=== PATIENT | female | born 1925 | race Caucasian/White ===

== ENCOUNTER 2017-06-24 16:43 | Emergency (ER) | payer MEDICARE ==
--- NOTE | 2017-06-24 17:12 | RAD ---
INDICATION: Left humerus injury COMPARISON: None TECHNIQUE: AP and lateral views were obtained. FINDINGS: There is a displaced distal clavicular fracture. The distal fracture fragment is displaced one bone width caudally. There is mild glenohumeral osteoarthritis. There is no humeral fracture. IMPRESSION: DISPLACED DISTAL CLAVICULAR FRACTURE.
--- NOTE | 2017-06-24 17:13 | RAD ---
INDICATION: Slurred speech. Injured shoulder COMPARISON: Chest x-ray April 12, 2017 TECHNIQUE: PA and lateral dual-energy views were obtained. FINDINGS: Bones/Soft Tissues: There is a distal left clavicular fracture with caudal displacement of the distal fracture fragment one to one bone width. Cardiomediastinal: The cardiomediastinal silhouette is normal. Lungs: There are no acute infiltrates. There is hyperinflation with chronic interstitial changes Pleura: There are no pleural effusions. Other: None IMPRESSION: DISTAL LEFT CLAVICULAR FRACTURE. HYPERINFLATION WITH CHRONIC INTERSTITIAL CHANGES. .
--- NOTE | 2017-06-24 17:16 | RAD ---
INDICATION: Right shoulder injury. Fall. COMPARISON: None TECHNIQUE: Noncontrast axial source images were acquired from the skull base to the vertex. FINDINGS: Ventricles/sulci: The ventricles and cisterns are normal in size and configuration for age. Brain parenchyma: There is no focal parenchymal finding, evidence of intracranial mass, or intracranial mass effect. Intracranial hemorrhage:None. Extra-axial spaces: There are no abnormal extra axial fluid collections or evidence of extra-axial mass. Calvarium: There is no calvarial fracture or other calvarial abnormality. Scalp: There is no evidence of scalp or extracalvarial soft tissue abnormality. Paranasal sinuses/mastoid: The paranasal sinuses and mastoid air cells are clear. Other: None. IMPRESSION: No acute intracranial findings
[2017-06-24 17:41] LABS: Hematocrit 37 % (35-47); Hemoglobin 12.1 g/dl (12.0-16.0); Mean Corpuscular HGB Conc 33 g/dl (31-36); Mean Corpuscular Hemoglobin 30 pg (27-31); Mean Corpuscular Volume 90 fL (80-97); Mean Platelet Volume 9 um3 (7.4-10.4); Red Blood Count 4.05 10^6/ul (4.0-5.4); Red Cell Distribution Width 15 % (10.5-15); White Blood Count 7.2 10^3/ul (3.5-10.8)
[2017-06-24 17:52] LABS: Calcium 9.3 mg/dL (8.6-10.3); EGFR African American 88.1 (>60); EGFR Non-African American 68.5 (>60); Potassium 4.1 mmol/L (3.5-5.0)
--- NOTE | 2017-06-24 18:41 | ED ---
Ally Díaz Gabriel, scribed for Rick Rodas MD on 06/24/17 at 1651 . Neurological HPI - HPI Summary HPI Summary: This patient is a 89 year old F presenting to [facility] with a chief complaint of possible neurological deficit since 16:10 The patient rates the pain 8/10 in severity. Patient reports abrasion on left knee Patient denies CP, SOB, head trauma, and dysuria. Patient states she tripped over her shoe and hit her shoulder when she fell. Pt took oxycodone at 14:00 and thats why her pain is controlled now. - History of Current Complaint Chief Complaint: EDGeneral Stated Complaint: POSSIBLE STROKE Time Seen by Provider: 06/24/17 16:49 Hx Obtained From: Patient Onset/Duration: Started minutes ago - 30, Still Present Timing: Constant Onset Severity: Mild Current Severity: Mild Pain Intensity: 8 Pain Scale Used: 0-10 Numeric - Allergy/Home Medications Allergies/Adverse Reactions: Allergies Allergy/AdvReac Type Severity Reaction Status Date / Time No Known Allergies Allergy Verified 06/15/16 15:16 Home Medications: Home Medications Diltiazem HCl Coated Beads [Cartia Xt] 120 mg PO DAILY 06/24/17 [History Confirmed 06/24/17] PMH/Surg Hx/FS Hx/Imm Hx Previously Healthy: No Endocrine/Hematology History: Denies: Hx Diabetes, Hx Thyroid Disease Cardiovascular History: Reports: Hx Hypercholesterolemia, Hx Hypertension, Other Cardiovascular Problems/Disorders - STATED PALPITATIONS Respiratory History: Denies: Hx Asthma, Hx Chronic Obstructive Pulmonary Disease (COPD) GI History: Denies: Hx Ulcer - Surgical History Surgery Procedure, Year, and Place: L HIP SURGERY; APPY; LEFT OOPHRECTOMY Infectious Disease History: No Infectious Disease History: Denies: Hx Hepatitis, Hx Human Immunodeficiency Virus (HIV), Traveled Outside the [place] in Last 30 Days - Family History Known Family History: Positive: Hypertension - Social History Alcohol Use: None Substance Use Type: Reports: None Substance Use Comment - Amount & Last Used: oxycodone Smoking Status (MU): Heavy Every Day Tobacco Smoker Type: Cigarettes Amount Used/How Often: 1 PPD Length of Time of Smoking/Using Tobacco: 70 years Have You Smoked in the Last Year: Yes Review of Systems Negative: Chest Pain Negative: Shortness Of Breath Positive: Other - pain at right shoulder Positive: Other - abrasion on left knee Negative: Headache, Slurred Speech All Other Systems Reviewed And Are Negative: Yes Physical Exam - Summary Physical Exam Summary: Appearance: Well appearing, no pain distress Skin: warm, dry, reflects adequate perfusion Abrasion and left patella Head/face: normal Eyes: EOMI, YADIRA ENT: normal Neck: supple, non-tender Respiratory: CTA, breath sounds present Cardiovascular: , pulses symmetrical Irregular irregular but rate is controlled Abdomen: non-tender, soft Bowel: present Musculoskeletal: normal, strength/ROM intact Tenderness at proximal left humerus , no deformity at the shoulder Neuro: normal, sensory motor intact, A&Ox3 Triage Information Reviewed: Yes Vital Signs On Initial Exam: Initial Vitals Temp Pulse Resp BP Pulse Ox 99.6 F 64 16 172/66 96 06/24/17 16:47 06/24/17 16:47 06/24/17 16:47 06/24/17 16:47 06/24/17 16:47 Vital Signs Reviewed: Yes Procedures - Procedure Summary Procedure Summary: Sling Note: Sling applied LUE. Neurovascular intact. Nelly well, no complications. Diagnostics - Vital Signs Vital Signs Temp Pulse Resp BP Pulse Ox 06/24/17 16:47 99.6 F 64 16 172/66 96 - Laboratory Lab Results: Lab Results 06/24/17 06/24/17 06/24/17 Range/Units 17:20 17:20 17:20 WBC 7.2 (3.5-10.8) 10^3/ul RBC 4.05 (4.0-5.4) 10^6/ul Hgb 12.1 (12.0-16.0) g/dl Hct 37 (35-47) % MCV 90 (80-97) fL MCH 30 (27-31) pg MCHC 33 (31-36) g/dl RDW 15 (10.5-15) % Plt Count 174 (150-450) 10^3/ul MPV 9 (7.4-10.4) um3 Neut % (Auto) 62.2 (38-83) % Lymph % (Auto) 22.9 L (25-47) % [place] % (Auto) 7.5 (1-9) % Eos % (Auto) 6.4 H (0-6) % Baso % (Auto) 1.0 (0-2) % Absolute Neuts (auto) 4.5 (1.5-7.7) 10^3/ul Absolute Lymphs (auto) 1.7 (1.0-4.8) 10^3/ul Absolute Monos (auto) 0.5 (0-0.8) 10^3/ul Absolute Eos (auto) 0.5 (0-0.6) 10^3/ul Absolute Basos (auto) 0.1 (0-0.2) 10^3/ul Absolute Nucleated RBC 0 10^3/ul Nucleated RBC % 0 INR (Anticoag Therapy) 1.29 H (0.77-1.02) Sodium 134 (133-145) mmol/L Potassium 4.1 (3.5-5.0) mmol/L Chloride 102 (101-111) mmol/L Carbon Dioxide 28 (22-32) mmol/L Anion Gap 4 (2-11) mmol/L BUN 15 (6-24) mg/dL Creatinine 0.79 (0.51-0.95) mg/dL Est GFR ( Amer) 88.1 (>60) Est GFR (Non-Af Amer) 68.5 (>60) BUN/Creatinine Ratio 19.0 (8-20) Glucose 198 H (70-100) mg/dL Calcium 9.3 (8.6-10.3) mg/dL Result Diagrams: 06/24/17 17:20 06/24/17 17:20 Lab Statement: Any lab studies that have been ordered have been reviewed, and results considered in the medical decision making process. - Radiology CXR Radiology Interpretation Completed By: Radiologist - DISTAL LEFT CLAVICULAR FRACTURE. HYPERINFLATION WITH CHRONIC INTERSTITIAL CHANGES. ED physician has reviewed this radiology report. Humerus xray Radiology Interpretation Completed By: Radiologist - DISPLACED DISTAL CLAVICULAR FRACTURE. ED physician has reviewed this radiology report. - CT brain CT CT Interpretation Completed By: Radiologist - No acute intracranial findings. ED physician has reviewed this radiology report. NIH Scale - NIH Scale Level of Consciousness: Alert/Keenly Responsive Ask Patient the Month and His/Her Age: Both Correct Ask Pt to Open/Close Eyes and Vegetable Vendor/Release Non-Paretic Hand: Both Correctly Best Gaze (Only Horizontal Eye Movement): Normal Visual Field Testing: Partial Hemianopia Motor Function - Right Arm: No Drift-Holds 10 Seconds Motor Function - Left Arm: No Drift-Holds 10 Seconds Motor Function - Right Leg: No Drift-Holds 10 Seconds Motor Function - Left Leg: No Drift-Holds 10 Seconds Limb Ataxia-Must be out of Proportion to Weakness Present: Absent Sensory (Use Pinprick to Test Arms/Legs/Trunk/Face): Normal Best Language (Describe Picture, Name Items): No Aphasia Dysarthria (Read Several Words): Normal Extinction and Inattention: No Abnormality Re-Evaluation - Re-Evaluation First Eval Re-Evaluation Time: 18:20 Change: Improved - Patient has improved and wants to go home. Course/Dx - Course Course Of Treatment: Fall after taking afternoon oxycodone, possibly caused some transient slurred speech. On Coumadin, INR subtx. CT neg of head. Clavicle fx -- placed in sling. Call pmd to adjust coumadin. - Diagnoses Provider Diagnoses: Clavicle fracture, Subtherapeutic international normalized ratio (INR) Discharge - Discharge Plan Condition: Good Disposition: HOME Patient Education Materials: Clavicle Fracture (ED) Referrals: Vivienne Nava MD [Primary Care Provider] - Valeriy Reyes MD [Medical Doctor] - Additional Instructions: call first thing in the morning to your doctor to adjust your Coumadin. Ice area. Sling for comfort. Take precautions for your safety, you are at more risk for fall with arm in sling. Return if worse, new symptoms or other concerns. Use your oxycodone for discomfort. Call Ortho doctor for appt in the morning. The documentation as recorded by the Ally mcgarry Gabriel accurately reflects the service I personally performed and the decisions made by me, Rick Rodas MD.
[2017-06-24 18:56] VITALS: BP 145/81
== END 2017-06-24 18:54 | disposition home or self-care (01) ==
LOC: ED 16:43
DX: S42.031A Displaced fracture of lateral end of right clavicle, initial encounter for closed fracture (principal); S80.212A Abrasion, left knee, initial encounter; W18.09XA Striking against other object with subsequent fall, initial encounter; Y92.9 Unspecified place or not applicable; E78.00 Pure hypercholesterolemia, unspecified; I10 Essential (primary) hypertension; F17.210 Nicotine dependence, cigarettes, uncomplicated
CPT/HCPCS: 36415; 70450; 71020; 80048; 85025; 85610; 99282